=== PATIENT | female | born 1990 | race American Indian/Alaskan Native ===

== ENCOUNTER 2019-08-29 23:04 | Emergency (ER) | payer OTHER ==
[2019-08-29 23:14] VITALS: BP 122/66
[2019-08-29] MEDS ORDERED: XYLOCAINE 1% 20 mL INFILTRATI ONE (23:35)
--- NOTE | 2019-08-29 23:39 | Emergency Department Report ---
HPI - General Chief Complaint: Extremity Problem,Nontraumatic Time Seen by Provider: 08/29/19 23:31 - HPI HPI: Room 42 The patient is a 29-year-old female presenting with a chief complaint of ingrown toenail. The patient says she has a history of ingrown toenails in the past month she's had pain in the right foot the nail of her great toe. Patient denies any recent trauma but states that her great toe has been painful. ED Past Medical Hx - Past Medical History Previous Medical History?: No - Surgical History Past Surgical History?: Yes Hx Cholecystectomy: Yes Additional Surgical History: C-Sec X 2, Breast reduction, T&A, Tubaligation - Family History Family history: no significant - Social History Smoking Status: Never Smoker Substance Use Type: Alcohol (occasional) - Medications Home Medications: Home Medications Medication Instructions Recorded Confirmed Last Taken Type cephALEXin [Keflex] 500 mg PO Q6HR #28 capsule 08/30/19 Unknown Rx ED Review of Systems ROS: Stated complaint: RIGHT TOE INFECTED WITH INGROWN NAIL Other details as noted in HPI Constitutional: no symptoms reported Eyes: denies: eye pain ENT: denies: throat pain Respiratory: no symptoms reported Cardiovascular: denies: chest pain Endocrine: no symptoms reported Gastrointestinal: denies: abdominal pain Genitourinary: denies: dysuria Skin: lesions Physical Exam - Physical Exam Vital Signs: Vital Signs 08/29/19 23:13 Temperature 97.5 F L Pulse Rate 81 Respiratory 18 Rate Blood Pressure 122/66 O2 Sat by Pulse 99 Oximetry Physical Exam: GENERAL: The patient is well-developed well-nourished female sitting in chair not appearing to be in acute distress. [] HEENT: Normocephalic. Atraumatic. Extraocular motions are intact. Patient has moist mucous membranes. NECK: Supple. Trachea midline CHEST/LUNGS: There is no respiratory distress noted. HEART/CARDIOVASCULAR: Normal capillary refill right great toe SKIN: There is swelling and tenderness to the lateral nail fold of the great toe. There is no edema. There is no diaphoresis. NEURO: The patient is awake, alert, and oriented. The patient is cooperative. The patient has no focal neurologic deficits. The patient has normal speech MUSCULOSKELETAL: There is no evidence of acute injury. ED Course Vital Signs 08/29/19 23:13 Temperature 97.5 F L Pulse Rate 81 Respiratory 18 Rate Blood Pressure 122/66 O2 Sat by Pulse 99 Oximetry - Nerve Block Consent Obtained: verbal consent Time Out Performed: Yes Local Anesthetic Used: Marcaine 0.25% Amount of anesthesia used: 4 (Marcaine was mixed with lidocaine 1% plain in a 1:1 ratio) Side: right Nerve Blocks: digital Procedure Successful: Yes Complications: none Patient Tolerated Procedure: well Additional Comments: After digital block performed on right great toe a pair of iris scissors were used to make a small longitudinal incision of the lateral aspect of the toenail of the great toe. Curved hemostats were then used to pull out the ingrown toenail. Wound was then irrigated copiously with normal saline and Betadine. Patient tolerated well ED Medical Decision Making - Medical Decision Making The patient states she already has pain medication at home from her previous breast reduction does not need a prescription for more pain medication. - Differential Diagnosis ingrown toenail Critical care attestation.: If time is entered above; I have spent that time in minutes in the direct care of this critically ill patient, excluding procedure time. ED Disposition Clinical Impression: Ingrown toenail of right foot Disposition: DC- TO HOME OR SELFCARE Is pt being admited?: No Does the pt Need Aspirin: No Condition: Stable Instructions: Ingrown Nail (ED) Prescriptions: cephALEXin [Keflex] 500 mg PO Q6HR #28 capsule Referrals: SHAYNA DOBSON DPM [Staff Physician] - 3-5 Days (Dr. Dobson is a core machine operator. Please follow up with him for further evaluation) Time of Disposition: 00:09
[2019-08-29] MEDS ORDERED: NACL 0.9% 500 ML IR ONE (23:42)
[2019-08-30] MEDS ORDERED: TRIPLE ANTIBIOTIC TP ONE ×2 (00:15→00:28)
[2019-08-30] MEDS: MARCAINE 0.25% INFILTRATI ONE (00:18)
== END 2019-08-30 00:35 | disposition home or self-care (01) ==
LOC: ED 23:04
DX: L60.0 Ingrowing nail (principal); Z98.51 Tubal ligation status; Z90.49 Acquired absence of other specified parts of digestive tract; Z98.890 Other specified postprocedural states
CPT/HCPCS: A6250

== ENCOUNTER 2019-09-13 00:46 | Emergency (ER) | payer OTHER ==
[2019-09-13 00:58] VITALS: BP 118/66
--- NOTE | 2019-09-13 02:27 | Emergency Department Report ---
- General Chief Complaint: Upper Respiratory Infection Stated Complaint: COUGH,CHEST PRESSURE,HEAD PRESSURE,DARK MUCUS Time Seen by Provider: 09/13/19 02:07 Source: patient Mode of arrival: Ambulatory Limitations: No Limitations - History of Present Illness Initial Comments: 29-year-old female, no past medical history, presents to ED with cough 2 weeks. She states cough is productive, reports associated wheezing. Patient denies fever. Patient reports chest pain and headache with cough. No relief with [id number] medications. MD Complaint: cough -: week(s) (2) Severity: moderate Quality: aching Consistency: constant Improves With: nothing Worsens With: nothing Associated Symptoms: headache, cough, chest pain (with cough). denies: fever, chills, nausea, vomiting Treatments Prior to Arrival: "cold medicine" - Related Data Previous Rx's Medication Instructions Recorded Last Taken Type cephALEXin [Keflex] 500 mg PO Q6HR #28 capsule 08/30/19 Unknown Rx Albuterol Sulfate [Proventil Hfa] 2 puff IH Q4HR PRN #1 hfa.aer.ad 09/13/19 Unknown Rx Benzonatate [Tessalon Perles] 100 mg PO Q8HR PRN #20 capsule 09/13/19 Unknown Rx Naproxen [Naprosyn] 500 mg PO BID #20 tablet 09/13/19 Unknown Rx predniSONE [Deltasone] 50 mg PO QDAY #5 tab 09/13/19 Unknown Rx Allergies Allergy/AdvReac Type Severity Reaction Status Date / Time No Known Allergies Allergy Verified 08/30/19 00:04 ED Review of Systems ROS: Stated complaint: COUGH,CHEST PRESSURE,HEAD PRESSURE,DARK MUCUS Other details as noted in HPI Comment: All other systems reviewed and negative Constitutional: denies: chills, fever Respiratory: cough, wheezing Cardiovascular: chest pain (with cough) Gastrointestinal: denies: nausea, vomiting ED Past Medical Hx - Past Medical History Previous Medical History?: No - Surgical History Hx Cholecystectomy: Yes Additional Surgical History: C-Sec X 2, Breast reduction, T&A, Tubaligation - Social History Smoking Status: Never Smoker Substance Use Type: None - Medications Home Medications: Home Medications Medication Instructions Recorded Confirmed Last Taken Type cephALEXin [Keflex] 500 mg PO Q6HR #28 capsule 08/30/19 Unknown Rx Albuterol Sulfate [Proventil Hfa] 2 puff IH Q4HR PRN #1 hfa.aer.ad 09/13/19 Unknown Rx Benzonatate [Tessalon Perles] 100 mg PO Q8HR PRN #20 capsule 09/13/19 Unknown Rx Naproxen [Naprosyn] 500 mg PO BID #20 tablet 09/13/19 Unknown Rx predniSONE [Deltasone] 50 mg PO QDAY #5 tab 09/13/19 Unknown Rx ED Physical Exam - General Limitations: No Limitations General appearance: alert, in no apparent distress - Head Head exam: Present: atraumatic, normocephalic - Eye Eye exam: Present: normal appearance, PERRL, EOMI - ENT ENT exam: Present: mucous membranes moist - Neck Neck exam: Present: normal inspection - Respiratory Respiratory exam: Present: normal lung sounds bilaterally. Absent: respiratory distress, wheezes, rales - Cardiovascular Cardiovascular Exam: Present: regular rate, normal rhythm - GI/Abdominal GI/Abdominal exam: Absent: distended - Extremities Exam Extremities exam: Present: normal inspection - Neurological Exam Neurological exam: Present: alert, oriented X3 - Psychiatric Psychiatric exam: Present: normal affect, normal mood - Skin Skin exam: Present: warm, dry, intact, normal color ED Course Vital Signs 09/13/19 00:54 Temperature 97.7 F Pulse Rate 82 Respiratory 18 Rate Blood Pressure 118/66 O2 Sat by Pulse 98 Oximetry ED Medical Decision Making - Radiology Data Radiology results: report reviewed, image reviewed - Differential Diagnosis pneumonia, bronchitis, pulmonary edema Critical care attestation.: If time is entered above; I have spent that time in minutes in the direct care of this critically ill patient, excluding procedure time. ED Disposition Clinical Impression: Acute bronchitis Disposition: DC-01 TO HOME OR SELFCARE Is pt being admited?: No Condition: Stable Instructions: Acute Bronchitis (ED) Prescriptions: predniSONE [Deltasone] 50 mg PO QDAY #5 tab Naproxen [Naprosyn] 500 mg PO BID #20 tablet Albuterol Sulfate [Proventil Hfa] 2 puff IH Q4HR PRN #1 hfa.aer.ad PRN Reason: Wheezing Benzonatate [Tessalon Perles] 100 mg PO Q8HR PRN #20 capsule PRN Reason: Cough Referrals: OLVIN BATISTA MD [Primary Care Provider] - 3-5 Days PRIMARY CARE, [Referring] - 3-5 Days
--- NOTE | 2019-09-13 03:26 | XRay Report ---
CHEST 2 VIEWS 0230 INDICATION / CLINICAL INFORMATION: cough COMPARISON: None available. FINDINGS: SUPPORT DEVICES: None. HEART / MEDIASTINUM: No significant abnormality. LUNGS / PLEURA: No significant pulmonary or pleural abnormality. No pneumothorax. ADDITIONAL FINDINGS: No significant additional findings. IMPRESSION: No significant acute abnormality Signer Name: Elfego Mendez MD Signed: 09/13/2019 3:22 AM Workstation Name: [id number]
== END 2019-09-13 03:55 | disposition home or self-care (01) ==
LOC: ED 00:46
DX: J20.9 Acute bronchitis, unspecified (principal); Z90.49 Acquired absence of other specified parts of digestive tract; Z98.51 Tubal ligation status; Z79.899 Other long term (current) drug therapy
CPT/HCPCS: 71046